=== PATIENT | female | born 1995 | race Caucasian/White ===

== ENCOUNTER 2016-10-07 15:17 | Emergency (ER) | payer MEDICAID ==
[~2016-10-07] VITALS: Ht 165.1 cm; Wt 50.0 kg
[2016-10-07 15:19] VITALS: BP 116/69; PULSE 104; RESP 18; TEMP 98.9; O2SAT 100
[2016-10-07] MEDS ORDERED: SODIUM CHLOR 0.9% 1000 ML INJ 1,000 ML IV SCH (15:40)
[2016-10-07 15:43] VITALS: RESP 17; O2SAT 99
[2016-10-07] MEDS ORDERED: ONDANSETRON HCL 4 MG/2 ML VIAL IVP ONE (15:45)
[2016-10-07] MEDS ORDERED: SODIUM CHLORIDE 0.9% FLUSH 10 ML FLUSH IV FLUSH PRN (15:45)
[2016-10-07] MEDS ORDERED: MORPHINE SULFATE 4 MG/ML INJ IV PUSH ONE (15:45)
--- NOTE | 2016-10-07 15:45 | PD ---
HPI Chief Complaint: Complaint Time Seen by Provider: 15:31 Travel History International Travel<30 days: No Contact w/Intl Traveler<30days: No Traveled to known affect area: No History of Present Illness HPI The patient is a 20-year-old female who presents to the emergency department for abdominal pain of 4 days' duration. The patient states she developed symptoms approximate 4 days ago with intermittent episodes of nausea and vomiting. The pain is periumbilical, nonradiating, sharp to crampy, without any known alleviating or exacerbating factors. She also complains of mild discomfort with urination and mild increased frequency, but denies any vaginal discharge. She does have a history of irregular menstrual cycles, is sexually active, not currently on control. However, she states she took her previous test which was negative. She denies any fever, chills, or sweats. She contacted her physician who is located in [place], [place], who referred her to the emergency department for further evaluation. PFSH Past Medical History Diminished Hearing: No Gastrointestinal Disorders: Yes (UTI HX ) Respiratory: Yes (BRONCHITIS ) Tetanus Vaccination: < 5 Years Influenza Vaccination: No ?: Unknown LMP: 06/30/16 : 0 Para: 0 Miscarriage: 0 : 0 Past Surgical History Surgical History: No Previous Surgery Social History Alcohol Use: No Tobacco Use: Yes (1/2 pack per day) Substance Use: Yes ([place]) Allergies-Medications (Allergen,Severity, Reaction): Coded Allergies: No Known Allergies (Unverified , 10/07/16) Reported Meds & Prescriptions Reported Meds & Active Scripts Active No Active Prescriptions or Reported Medications Review of Systems Except as stated in HPI: all other systems reviewed are Neg General / Constitutional: No: Fever, Chills Respiratory: No: Shortness of Breath Gastrointestinal: Positive: Nausea, Vomiting, Abdominal Pain, No: Diarrhea, Constipation, Changes in Bowel Habits Genitourinary: Positive: Frequency, Dysuria, No: Urgency, Hematuria, Discharge Musculoskeletal: No: Myalgias, Arthralgias Skin: No Rash Physical Exam Narrative GENERAL: Awake, alert, pleasant 20-year-old female who appears her stated age and is in no acute respiratory distress. SKIN: Focused skin assessment warm/dry. HEAD: Atraumatic. Normocephalic. EYES: Pupils equal and round. No scleral icterus. No injection or drainage. ENT: No nasal bleeding or discharge. Mucous membranes pink and moist. NECK: Trachea midline. No JVD. CARDIOVASCULAR: Regular rate and rhythm. No murmur appreciated. Heart rate in the 90s. RESPIRATORY: No accessory muscle use. Clear to auscultation. Breath sounds equal bilaterally. GASTROINTESTINAL: Abdomen soft, mild pain but periumbilical tenderness, negative McBurney's, negative Lockwood's. Minimal suprapubic tenderness. Pelvic: The exam was performed in the presence of a female nurse. External exam reveals no rashes or lesions. Speculum examination reveals scant thin clear discharge in vaginal vault. Cervix is closed. No cervical motion tenderness. No adnexal tenderness. MUSCULOSKELETAL: No obvious deformities. No clubbing. No cyanosis. No edema. NEUROLOGICAL: Awake and alert. No obvious cranial nerve deficits. Motor grossly within normal limits. Normal speech. PSYCHIATRIC: Appropriate mood and affect; insight and judgment normal. Data Data Last Documented VS Vital Signs Date Time Temp Pulse Resp B/P Pulse Ox O2 Delivery O2 Flow Rate FiO2 10/07/16 18:10 97.8 98 17 118/76 99 Room Air Orders Complete Blood Count With Diff (10/07/16 15:40) Comprehensive Metabolic Panel (10/07/16 15:40) Lipase (10/07/16 15:40) Urinalysis - C+S If Indicated (10/07/16 15:40) Iv Access Insert/Monitor (10/07/16 15:40) Ecg Monitoring (10/07/16 15:40) Oximetry (10/07/16 15:40) Morphine Inj (Morphine Inj) (10/07/16 15:45) Ondansetron Inj (Zofran Inj) (10/07/16 15:45) Sodium Chlor 0.9% 1000 Ml Inj (Ns 1000 M (10/07/16 15:40) Sodium Chloride 0.9% Flush (Ns Flush) (10/07/16 15:45) Ed Urine Pregnancytest Poc (10/07/16 15:40) Beta Hcg (Quant/Titer) (10/07/16 15:55) Gc And Chlamydia Pcr (10/07/16 17:05) Us Pelvis (Ques Pr/Ect)W Trans (10/07/16 ) Wet Prep Profile (10/07/16 17:05) Labs Laboratory Tests Test 10/07/16 10/07/16 15:45 17:30 White Blood Count 9.4 TH/MM3 Red Blood Count 4.47 MIL/MM3 Hemoglobin 13.2 GM/DL Hematocrit 39.5 % Mean Corpuscular Volume 88.4 FL Mean Corpuscular Hemoglobin 29.5 PG Mean Corpuscular Hemoglobin 33.4 % Concent Red Cell Distribution Width 13.4 % Platelet Count 286 TH/MM3 Mean Platelet Volume 7.7 FL Neutrophils (%) (Auto) 72.3 % Lymphocytes (%) (Auto) 19.4 % Monocytes (%) (Auto) 7.3 % Eosinophils (%) (Auto) 0.7 % Basophils (%) (Auto) 0.3 % Neutrophils # (Auto) 6.8 TH/MM3 Lymphocytes # (Auto) 1.8 TH/MM3 Monocytes # (Auto) 0.7 TH/MM3 Eosinophils # (Auto) 0.1 TH/MM3 Basophils # (Auto) 0.0 TH/MM3 CBC Comment DIFF FINAL Differential Comment Urine Color YELLOW Urine Turbidity CLEAR Urine pH 6.0 Urine Specific [place] 1.020 Urine Protein NEG mg/dL Urine Glucose (UA) NEG mg/dL Urine Ketones NEG mg/dL Urine Occult Blood NEG Urine Nitrite NEG Urine Bilirubin NEG Urine Urobilinogen LESS THAN 2.0 MG/DL Urine Leukocyte Esterase NEG Urine RBC LESS THAN 1 /hpf Urine WBC 1 /hpf Urine Squamous Epithelial 5 /hpf Cells Urine Mucus FEW /lpf Microscopic Urinalysis Comment CULT NOT INDICATED Sodium Level 142 MEQ/L Potassium Level 3.7 MEQ/L Chloride Level 109 MEQ/L Carbon Dioxide Level 28.9 MEQ/L Anion Gap 4 MEQ/L Blood Urea Nitrogen 11 MG/DL Creatinine 0.76 MG/DL Estimat Glomerular Filtration 98 ML/MIN Rate Random Glucose 75 MG/DL Calcium Level 9.1 MG/DL Total Bilirubin 0.7 MG/DL Aspartate Amino Transf 16 U/L (AST/SGOT) Alanine Aminotransferase 19 U/L (ALT/SGPT) Alkaline Phosphatase 79 U/L Total Protein 7.0 GM/DL Albumin 3.9 GM/DL Lipase 212 U/L Human Chorionic Gonadotropin, 2060 MIU/ML Quant Clue Cells (Wet Prep) NONE SEEN Vaginal Trichomonas (Wet Prep) NONE SEEN Vaginal Yeast (Wet Prep) NONE SEEN MDM Medical Decision Making Medical Screen Exam Complete: Yes Emergency Medical Condition: Yes Medical Record Reviewed: Yes Interpretation(s) Laboratory Tests Test 10/07/16 15:45 White Blood Count 9.4 TH/MM3 Red Blood Count 4.47 MIL/MM3 Hemoglobin 13.2 GM/DL Hematocrit 39.5 % Mean Corpuscular Volume 88.4 FL Mean Corpuscular Hemoglobin 29.5 PG Mean Corpuscular Hemoglobin 33.4 % Concent Red Cell Distribution Width 13.4 % Platelet Count 286 TH/MM3 Mean Platelet Volume 7.7 FL Neutrophils (%) (Auto) 72.3 % Lymphocytes (%) (Auto) 19.4 % Monocytes (%) (Auto) 7.3 % Eosinophils (%) (Auto) 0.7 % Basophils (%) (Auto) 0.3 % Neutrophils # (Auto) 6.8 TH/MM3 Lymphocytes # (Auto) 1.8 TH/MM3 Monocytes # (Auto) 0.7 TH/MM3 Eosinophils # (Auto) 0.1 TH/MM3 Basophils # (Auto) 0.0 TH/MM3 CBC Comment DIFF FINAL Differential Comment Urine Color YELLOW Urine Turbidity CLEAR Urine pH 6.0 Urine Specific [place] 1.020 Urine Protein NEG mg/dL Urine Glucose (UA) NEG mg/dL Urine Ketones NEG mg/dL Urine Occult Blood NEG Urine Nitrite NEG Urine Bilirubin NEG Urine Urobilinogen LESS THAN 2.0 MG/DL Urine Leukocyte Esterase NEG Urine RBC LESS THAN 1 /hpf Urine WBC 1 /hpf Urine Squamous Epithelial 5 /hpf Cells Urine Mucus FEW /lpf Microscopic Urinalysis Comment CULT NOT INDICATED Sodium Level 142 MEQ/L Potassium Level 3.7 MEQ/L Chloride Level 109 MEQ/L Carbon Dioxide Level 28.9 MEQ/L Anion Gap 4 MEQ/L Blood Urea Nitrogen 11 MG/DL Creatinine 0.76 MG/DL Estimat Glomerular Filtration 98 ML/MIN Rate Random Glucose 75 MG/DL Calcium Level 9.1 MG/DL Total Bilirubin 0.7 MG/DL Aspartate Amino Transf 16 U/L (AST/SGOT) Alanine Aminotransferase 19 U/L (ALT/SGPT) Alkaline Phosphatase 79 U/L Total Protein 7.0 GM/DL Albumin 3.9 GM/DL Lipase 212 U/L Human Chorionic Gonadotropin, 2060 MIU/ML Quant Ultrasound reveals IUP 2 earlier today, nothing to suggest ectopic. Differential Diagnosis Differential diagnosis includes UTI, pyelonephritis, nephrolithiasis, atypical appendicitis, PID, cervicitis, viral syndrome, gastritis, atypical pancreatitis. Narrative Course IV was established, labs are drawn and sent, and the patient was placed on cardiac telemetry monitoring and continuous pulse oximetry monitoring. The patient was administered morphine, Zofran, and IV fluids. Bedside UA test was obtained and UA was sent to lab. Bedside UA test was positive, therefore, formal beta hCG was sent to lab. Pelvic exam was performed in the presence of a female nurse. Ultrasound was ordered to evaluate for ectopic . Beta hCG is just over 2000, formal ultrasound was ordered to evaluate for ectopic . Wet prep was sent to lab. Wet prep is negative. Ultrasound reveals IUP too early today, nothing to suggest ectopic . The patient is advised to take a vitamin and follow -up with a associate director data & analytics. Return if symptoms worsen or progress. Diagnosis Primary Impression: Qualified Code: Z33.1 - , unspecified gestational age Additional Impression: Threatened Patient Instructions: General Instructions Additional Instructions: Take a vitamin daily. Follow-up with an associate director data & analytics. Return if symptoms worsen or progress. Med/Other Pt SpecificInfo: No Change to Meds Scripts No Active Prescriptions or Reported Meds Disposition: DISCHARGE HOME Condition: Stable Aubrey Mcduffie MD Oct 07, 2016 15:45
[2016-10-07 16:38] LABS: AUTOMATED NEUTROPHIL # 6.8 TH/MM3 (1.8-7.7); BASOPHIL % 0.3 % (0.0-2.0); EOSINOPHIL # 0.1 TH/MM3 (0-0.4); EOSINOPHIL % 0.7 % (0.0-4.0); HEMATOCRIT 39.5 % (35.0-46.0); HEMO FLAGS DIFF FINAL; LYMPH % 19.4 % (9.0-44.0); LYMPHOCYTE # 1.8 TH/MM3 (1.0-4.8); MEAN CELL VOLUME 88.4 FL (80.0-100.0); MEAN CORPUSCULAR HEMOGLOBIN 29.5 PG (27.0-34.0); MEAN CORPUSCULAR HGB CONC 33.4 % (32.0-36.0); MONO % 7.3 % (0.0-8.0); NEUT % 72.3 % (16.0-70.0); PLATELET COUNT 286 TH/MM3 (150-450); RED BLOOD COUNT 4.47 MIL/MM3 (4.00-5.30); RED CELL DISTRIBUTION WIDTH 13.4 % (11.6-17.2); WHITE BLOOD COUNT 9.4 TH/MM3 (4.0-11.0)
[2016-10-07 16:49] VITALS: BP 98/57; PULSE 69; RESP 17; TEMP 97.8; O2SAT 99
[2016-10-07 16:51] LABS: BLOOD, URINE NEG (NEG); GLUCOSE,URINE NEG (NEG); KETONE, URINE NEG (NEG); MUCUS URINE FEW /lpf (OCC); NITRITE,URINE NEG (NEG); SQUAMOUS EPITHELIAL CELL URINE 5 /hpf (0-5); URINE COLOR YELLOW (YELLW/STRAW)
[2016-10-07 16:53] LABS: COMMENT (UR) CULT NOT INDICATED; CULTURE IF INDICATED CULT NOT INDICATED
[2016-10-07 17:08] LABS: ALT (GPT) 19 U/L (9-42); ANION GAP 4 MEQ/L (5-15); AST (GOT) 16 U/L (16-38); BICARBONATE 28.9 MEQ/L (21.0-32.0); BLOOD UREA NITROGEN 11 MG/DL (7-18); CHLORIDE 109 MEQ/L (98-107); GLOMERULAR FILTRATION RATE 98 ML/MIN (>89); POTASSIUM 3.7 MEQ/L (3.5-5.1); SODIUM (NA) 142 MEQ/L (136-145)
[2016-10-07 17:10] LABS: ALKALINE PHOSPHATASE 79 U/L (45-117); TOTAL BILIRUBIN ADULT 0.7 MG/DL (0.2-1.0)
[2016-10-07 17:43] LABS: BETA HCG QUANT 2060 MIU/ML (0-5)
[2016-10-07 18:10] VITALS: BP 118/76; PULSE 98; RESP 17; TEMP 97.8; O2SAT 99
--- NOTE | 2016-10-07 18:52 | RADRPT ---
EXAM DATE/TIME: 10/07/2016 17:47 [facility] COMPARISON: No previous studies available for comparison. INDICATIONS : Pelvic pain. LAB(S): Beta-hC MEDICAL HISTORY : . Bronchitis. UTI. Substance use. Tobacco use. SURGICAL HISTORY : None. ENCOUNTER: Initial ACUITY: 4-6 days PAIN SCORE: 3/10 LOCATION: Bilateral pelvis MEASUREMENTS: UTERUS: 8.6 x 7.2 x 5.9 cm ENDOMETRIAL STRIPE: 19 mm RIGHT OVARY: 4.6 x 3.9 x 2.0 cm LEFT OVARY: 3.2 x 2.4 x 2.1 cm FREE FLUID: Yes Trace in posterior cul de sac. CROWN RUMP LENGTH: Non visualized. = WKS DAYS FHR: Non visualized. BPM FINDINGS: UTERUS: Thickened endometrium and a tiny intrauterine gestational sac too early to date noted. No perceptible yolk sac or pole, presumably too early. No hemorrhage or other acute uterine abnormality demon strated. RIGHT OVARY: 36 mm mildly complex cyst, probably a corpus luteal cyst. LEFT OVARY: Ovary contains no mass or significant cystic lesion. MISCELLANEOUS: Trace free fluid in the pelvic cul-de-sac. CONCLUSION: Intrauterine too early to date. Right ovarian cyst probably corpus luteal. Nothing to sugge st ectopic. Master Painter MD on October 07, 2016 at 18:47 Board Certified Radiologist. This report was verified electronically.
[2016-10-07 19:28] VITALS: BP 100/60
[2016-10-07 21:49] LABS: CHLAMYDIA PCR NOT DETECTED (NOT DETECT); NEISSERIA PCR NOT DETECTED (NOT DETECT)
== END 2016-10-07 19:30 | disposition home or self-care (01) ==
LOC: NEPE 15:17
DX: O20.0 Threatened abortion (principal); Z3A.00 Weeks of gestation of pregnancy not specified
CPT/HCPCS: 76700; 76817; 80053; 81001; 83690; 84702; 84703; 85025; 87210; 87491; 87591; 96361; 96374; 96375; 99285; J2270; J2405; J7030

== ENCOUNTER 2016-10-30 13:07 | Emergency (ER) | payer MEDICAID, OTHER ==
[~2016-10-30] VITALS: Ht 165.1 cm; Wt 52.0 kg
[2016-10-30 13:09] VITALS: BP 118/65; PULSE 74; RESP 20; TEMP 98.1; O2SAT 97
--- NOTE | 2016-10-30 13:11 | PD ---
Physical Exam Time Seen by Provider: 13:09 Narrative 21 y/o female with early presents for evaluation of cough, congestion , myalgias. Vital signs reviewed. Seen at triage desk. Awaiting bed placement. Data Data Last Documented VS Vital Signs Date Time Temp Pulse Resp B/P Pulse Ox O2 Delivery O2 Flow Rate FiO2 10/30/16 13:09 98.1 74 20 118/65 97 Room Air [facility] Medical Record Reviewed: Yes Supervised Visit with TRUDY: No Scripts No Active Prescriptions or Reported Meds Olvin Drummond Oct 30, 2016 13:11
--- NOTE | 2016-10-30 15:26 | PD ---
HPI Chief Complaint: Related Problem Time Seen by Provider: 15:25 Travel History International Travel<30 days: No Contact w/Intl Traveler<30days: No Traveled to known affect area: No History of Present Illness HPI 21-year-old female, approximately 8 weeks , presents emergency department with complaint of cough, nasal congestion, throat irritation, bilateral ear pressure times one and half weeks. Denies chest pain, shortness of breath. Reports sputum production. Denies fever. Reports nausea and vomiting in the mornings. Reports intermittent left lower quadrant abdominal pain and cramping. Says abdominal pain is worse after sexual intercourse. She was seen here on October 07 and was told possible threatened miscarriage and needed her blood levels checked again after 2 weeks; she did not follow-up as she is from out of town and here on vacation for 2 months. Denies vaginal bleeding, discharge, odor, itch. No known allergies. Has no other medical complaints. No other modifying factors or associated signs and symptoms. PFSH Past Medical History Diminished Hearing: No Gastrointestinal Disorders: Yes (UTI HX ) Respiratory: Yes (BRONCHITIS ) ?: : 0 Para: 0 Miscarriage: 0 : 0 Social History Alcohol Use: No Tobacco Use: Yes (1/2 pack per day) Substance Use: Yes ([place]) Allergies-Medications (Allergen,Severity, Reaction): Coded Allergies: No Known Allergies (Unverified , 10/30/16) Reported Meds & Prescriptions Reported Meds & Active Scripts Active No Active Prescriptions or Reported Medications Review of Systems Except as stated in HPI: all other systems reviewed are Neg Physical Exam Narrative GENERAL: Well-nourished, well-developed female patient, in no acute distress; afebrile, nontoxic-appearing SKIN: Warm and dry. No rash. HEAD: Atraumatic. Normocephalic. EYES: Pupils equal and round. No scleral icterus. No injection or drainage. ENT: Mucosa pink and moist. No erythema or exudates. No uvular edema. No uvular , palatal, or tonsillar deviation. Airway patent. EARS: Bilateral pinnae and external canals appear within normal limits. Bilateral tympanic membranes without erythema, dullness or perforation. NECK: Trachea midline. No lymphadenopathy. CARDIOVASCULAR: Regular rate and rhythm. No murmur appreciated. RESPIRATORY: No accessory muscle use. Clear to auscultation. Breath sounds equal bilaterally. No retractions or tachypnea. GASTROINTESTINAL: Abdomen soft, left lower quadrant abdominal pain on palpation , nondistended. Hepatic and splenic margins not palpable. Bowel sounds are active 4 quadrants. MUSCULOSKELETAL: No obvious deformities. No clubbing. No cyanosis. No edema. NEUROLOGICAL: Awake and alert. Oriented 3. No obvious cranial nerve deficits. Motor grossly within normal limits. Normal speech. Moves all extremities. 5/5 strength to all extremities. PSYCHIATRIC: Appropriate mood and affect; insight and judgment normal. Data Data Last Documented VS Vital Signs Date Time Temp Pulse Resp B/P Pulse Ox O2 Delivery O2 Flow Rate FiO2 10/30/16 13:09 98.1 74 20 118/65 97 Room Air Orders Beta Hcg (Quant/Titer) (10/30/16 15:27) Us Pelvis (Ques Pr/Ect)W Trans (10/30/16 ) Urinalysis - C+S If Indicated (10/30/16 15:27) Chest, Single Ap (10/30/16 15:27) Ed Urine Pregnancytest Poc (10/30/16 16:48) Labs Laboratory Tests Test 10/30/16 10/30/16 15:45 15:50 Urine Color YELLOW Urine Turbidity CLEAR Urine pH 7.0 Urine Specific [place] 1.014 Urine Protein NEG mg/dL Urine Glucose (UA) NEG mg/dL Urine Ketones NEG mg/dL Urine Occult Blood NEG Urine Nitrite NEG Urine Bilirubin NEG Urine Urobilinogen LESS THAN 2.0 MG/DL Urine Leukocyte Esterase TRACE Urine RBC 1 /hpf Urine WBC 1 /hpf Urine Squamous Epithelial 8 /hpf Cells Microscopic Urinalysis Comment CULT NOT INDICATED Human Chorionic Gonadotropin, 85182 MIU/ML Quant [facility] Medical Decision Making Medical Screen Exam Complete: Yes Emergency Medical Condition: Yes Medical Record Reviewed: Yes Differential Diagnosis Viral illness, pneumonia, bronchitis, ectopic , threatened miscarriage , nonspecific abdominal pain Narrative Course 21-year-old female with cough and cold symptoms for a week and a half. She is approximately 8 weeks . She was seen here on October 07 and an ultrasound concluded an intrauterine too early to date and nothing to suggest ectopic . Her beta hCG at that visit was 2059. She was told to follow up after 2 weeks which she has not done since she is on vacation here for 2 months and does not have an CUE WORKER. She continues to have abdominal cramping to the left lower quadrant without vaginal bleeding or discharge. I spoke with Dr. Ag, my attending physician, and she recommended beta hCG, chest x-ray, urinalysis and pelvic ultrasound. Orders entered. 1645: Chest x-ray with no acute findings. 1707: Beta hCG 30341. Urinalysis negative for infection. 1806: Pelvic ultrasound concluded uterine gestation of 8 weeks 3 days with cardiac activity detected at 173 bpm. Azithromycin prescribed for home for of illness. Entered the patient to follow up with external auditor. Instructed patient to follow up with primary care provider. Patient verbalizes understanding and agreement with treatment plan. Patient is medically cleared and stable for discharge. Discussed reasons to return to the emergency department. Patient agrees with treatment plan. The patients vital signs are stable and the patient is stable for outpatient follow-up and treatment. Patient discharged home, stable and in no acute distress. Diagnosis Primary Impression: Viral illness Additional Impression: Normal IUP (intrauterine ) on ultrasound Qualified Code: Z34.91 - Normal IUP (intrauterine ) on ultrasound, first trimester Referrals: Primary Care Physician Patient Instructions: Cold Symptoms (ED), First Trimester (ED), General Instructions Additional Instructions: Antibiotics as prescribed and complete full course Tylenol as instructed and as needed for fever/pain Get plenty of sleep/rest Drink plenty of fluids to prevent dehydration; popsicles and Gatorade Use an air humidifier/turn off ceiling fans Follow-up with primary care provider Return immediately to the emergency department with worsening of symptoms Med/Other Pt SpecificInfo: Prescription(s) given Scripts Azithromycin 250 Mg [id number] Mg PO DIRECTED #6 TAB Ref 0 Take 2 tabs (500 mg) on day 1 then 1 tab daily x 4 days. Prov:Krupa Corona 10/30/16 Disposition: DISCHARGE HOME Condition: Stable Krupa Corona Oct 30, 2016 15:26
--- NOTE | 2016-10-30 16:39 | RADRPT ---
EXAM DATE/TIME: 10/30/2016 15:30 [facility] COMPARISON: No previous studies available for comparison. INDICATIONS : Coughing for one week, pain in chest and abdomen MEDICAL HISTORY : , UTI, bronchitis, tobacco use SURGICAL HISTORY : None. ENCOUNTER: Initial ACUITY: 1 week PAIN SCORE: 5/10 LOCATION: Bilateral chest FINDINGS: The lungs are clear without infiltrate, nodule, or mass. There is no appreciable pleural effusion fo r technique. Heart and mediastinum are unremarkable. CONCLUSION: No acute cardiopulmonary disease. Roel Suresh MD on October 30, 2016 at 16:36 Board Certified Radiologist. This report was verified electronically.
[2016-10-30 16:41] LABS: BLOOD, URINE NEG (NEG); COMMENT (UR) CULT NOT INDICATED; CULTURE IF INDICATED CULT NOT INDICATED; GLUCOSE,URINE NEG (NEG); KETONE, URINE NEG (NEG); NITRITE,URINE NEG (NEG); SQUAMOUS EPITHELIAL CELL URINE 8 /hpf (0-5); URINE COLOR YELLOW (YELLW/STRAW)
[2016-10-30 17:06] LABS: BETA HCG QUANT 86423 MIU/ML (0-5)
--- NOTE | 2016-10-30 17:39 | RADRPT ---
EXAM DATE/TIME: 10/30/2016 16:04 [facility] COMPARISON: No previous studies available for comparison. INDICATIONS : Pelvic pain. LAB(S): Beta-hC MEDICAL HISTORY : . Bronchitis. UTIs. Substance use. Tobacco use. SURGICAL HISTORY : None. ENCOUNTER: Subsequent ACUITY: 1 month PAIN SCORE: 5/10 LOCATION: Bilateral pelvis MEASUREMENTS: TRANSVAGINAL: UTERUS: 8.1 x 7.6 x 6.4 cm ENDOMETRIAL STRIPE: 9 mm RIGHT OVARY: 4.4 x 3.1 x 2.6 cm LEFT OVARY: 4.0 x 2.8 x 2.4 cm FREE FLUID: No CROWN RUMP LENGTH: 1.8 cm = 8 WKS 3 DAYS FHR: 173 BPM FINDINGS: UTERUS: Intrauterine gestation is identified with estimated crown-rump length of 18 mm yielding estimated ges tational age of 8 weeks 3 days. cardiac activity is detected at 173 beats per minute. RIGHT OVARY: Small hypoechoic mass measuring about a centimeter in size may be corpus luteum. LEFT OVARY: Ovary contains no mass or significant cystic lesion. MISCELLANEOUS: No free fluid. CONCLUSION: Intrauterine gestation. Master Le MD on October 30, 2016 at 17:28 Board Certified Radiologist. This report was verified electronically.
[2016-10-30] MEDS ORDERED: AZIT250T3 PO (18:05)
[2016-10-30 18:22] VITALS: BP 96/58; PULSE 59; RESP 18; O2SAT 100
== END 2016-10-30 18:27 | disposition home or self-care (01) ==
LOC: NEPD 13:07
DX: O98.511 Other viral diseases complicating pregnancy, first trimester (principal); R10.2 Pelvic and perineal pain; Z3A.08 8 weeks gestation of pregnancy
CPT/HCPCS: 71010; 76700; 76817; 81001; 84702; 84703; 99285